=== PATIENT | male | born 1995 | race Caucasian/White ===

== ENCOUNTER 2019-04-08 14:58 | Emergency (ER) | payer BC ==
[2019-04-08 15:04] VITALS: BP 160/94
== END 2019-04-08 16:16 | disposition left against medical advice (07) ==
LOC: ED 14:58
DX: F10.10 Alcohol abuse, uncomplicated (principal); Z53.21 Procedure and treatment not carried out due to patient leaving prior to being seen by health care provider

== ENCOUNTER 2019-04-25 16:47 | Emergency (ER) | payer BC ==
--- OUTSIDE RECORDS SUMMARY | 2019-04-25 17:01 | XMS REPORT | Summary of Care ---
:1995 Author Organization [facility] Address [address] [place] [place] [address] Care Team Providers Name Role Phone Bisi Abrams Primary Care Provider Reason for Referral Evaluate and Establish Treatment Plan (Routine) Status Reason Specialty Diagnoses / Referred By Referred To Procedures Contact Contact Authorized PSYCHIATRY / Diagnoses Anxiety Jose Alberto, Psychiatry ANUJ Mathews [address] [place] [address] Reason for Visit Reason Comments Establish Care released from drug treatment facility on 04/13 and would also like to discuss possibly going on anxiety medication Encounter Details Date Type Department Care Team Description 04/17/2019 Office Visit [place] Bisi Walls, Encounter to establish care (Primary Dx); Practice [facility] SERVICES SPECIALIST Anxiety; [address] [facility] [address] Alcohol withdrawal syndrome without complication (HCC); [place], [place] [id number] [place] [address] Essential hypertension [phone] Allergies Active Allergy Reactions Severity Noted Date Comments Bee Unknown Reaction 04/06/2018 documented as of this encounter (statuses as of 04/17/2019) Medications Medication Sig Dispensed Refills Start Date End Date Status cloNIDine-Chlortha Take 0.1 mg 90 Tab 3 04/17/2019 Active lidone 0.1-15 MG by mouth Oral THREE TIMES TabIndications: DAILY. Alcohol withdrawal syndrome without complication (HCC), Essential hypertension cloNIDine-Chlortha Take 0.1 mg 0 04/17/2019 Discontinued lidone 0.1-15 MG by mouth (Reorder) Oral Tab THREE TIMES DAILY. cloNIDine-Chlortha Take 0.1 mg 90 Tab 0 04/17/2019 04/17/2019 Discontinued lidone 0.1-15 MG by mouth Oral THREE TIMES TabIndications: DAILY. Alcohol withdrawal syndrome without complication (HCC), Essential hypertension documented as of this encounter (statuses as of 04/17/2019) Active Problems No known active problemsdocumented as of this encounter (statuses as of 2018) Social History Tobacco Use Types Packs/Day Years Used Date Former Smoker Cigarettes 0 Quit: 03/27/2019 Smokeless Tobacco: Never Used Alcohol Use Drinks/Week oz/Week Comments Not Currently Detox in April 2019. Sex Assigned at Date Recorded Not on file Job Start Date Occupation Industry Not on file Not on file Not on file Travel History Travel Start Travel End No recent travel history available. documented as of this encounter Last Filed Vital Signs Vital Sign Reading Time Taken Comments Blood Pressure 126/54 04/17/2019 10:51 AM EST Pulse 64 04/17/2019 10:51 AM EST Temperature - - Respiratory Rate - - Oxygen Saturation 97% 04/17/2019 10:51 AM EST Inhaled Oxygen Concentration - - Weight 98.5 kg (217 lb 3.2 oz) 04/17/2019 10:51 AM EST Height 185.4 cm (6' 1") 04/17/2019 10:51 AM EST Body Mass Index 28.66 04/17/2019 10:51 AM EST documented in this encounter Patient Instructions Patient InstructionsBisi Abrams NP - 04/17/2019 11:00 AM DIXON have sent in a refill of the clonidine-chlorthalidone. Referral to psych - we can make this appointment when you leave. Please get blood work done today. Follow up in about 3 months. Check Blood pressures at home once in awhile - do not want to go below 100/50. documented in this encounter Progress Notes Bisi Abrams NP - 04/17/2019 11:00 AM EST PATIENT: Christoph Torres : 1995 DATE OF SERVICE: 04/17/2019 CHIEF COMPLAINT: Chief Complaint Patient presents with [facility] released from drug treatment facility on 04/13 and would also like to discuss possibly going on anxiety medication Subjective HISTORY OF PRESENT ILLNESS: Christoph Torres is a 23-y.o. male. HPI Just released for etoh detox last week, was successful - Detox in [facility]." He is concerned because his BP was high at detox - 200/?. He was taking clonidine while there whichhelped with the blood pressure. Now sober, his anxiety is much increased. He was getting valium while in detox which helped. 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 Worried he will lose his job. He is 7 days sober. Denies any other drug use. He is currently taking clonidine three times a day for his blood pressure. Valium once or twice a day. In the last year whenever he has checked his BP it is consistently in 160's to 170's. History reviewed. No pertinent past medical history. History reviewed. No pertinent family history. Current Outpatient Medications Medication Sig cloNIDine-Chlorthalidone 0.1-15 MG Oral Tab Take 0.1 mg by mouth THREE TIMES DAILY. No current facility-administered medications for this visit. Allergies Allergen Reactions Bee Unknown Reaction Social History Socioeconomic History Marital status: Single Spouse name: Not on file Number of children: Not on file Years of education: Not on file Highest education level: Not on file Occupational History Not on file Social Needs Financial resource strain: Not on file Food insecurity: Worry: Not on file Inability: Not on file Transportation needs: Medical: Not on file Non-medical: Not on file Tobacco Use Smoking status: Former Smoker Packs/day: 0.00 Types: Cigarettes Last attempt to quit: 03/27/2019 Years since quittin.0 Smokeless tobacco: Never Used Substance and Sexual Activity Alcohol use: Not Currently Comment: Detox in April 2019. Drug use: Yes Types: Marijuana Comment: for migraines. Sexual activity: Not on file Lifestyle Physical activity: Days per week: Not on file Minutes per session: Not on file Stress: Not on file Relationships Social connections: Talks on phone: Not on file Gets together: Not on file Attends lutheran service: Not on file Active member of club or organization: Not on file Attends meetings of clubs or organizations: Not on file Relationship status: Not on file Intimate partner violence: Fear of current or ex partner: Not on file Emotionally abused: Not on file Physically abused: Not on file Forced sexual activity: Not on file Other Topics Concern Not on file Social History Narrative Not on file Over the last 2 weeks, have you been feeling down, depressed, anxious, or hopeless?: 3 Over the past 2 weeks, have you felt little interest or pleasure in doing things ?: 0 Trouble falling or staying asleep, or sleeping too much?: 2 Feeling tired or having little energy?: 0 Poor appetite or overeating?: 0 Feeling bad about yourself or that you are a failure or have let yourself or your family down?: 0 Trouble concentrating on things, such as reading the newspaper or watching TV?: 2 Moving or speaking so slowly that other people notice OR being fidgety and restless?: 0 Thoughts that you would be better off or of hurting yourself in some way?: 0 PHQ-9 TOTAL SCORE: 7 How difficult have these problems made it for you to do your work, take care of things at home or get along with people?: Somewhat difficult In the past 2 years, have you felt depressed or sad most days, even if you felt ok?: Yes REVIEW OF SYSTEMS: Review of Systems Constitutional: Negative for chills, fever and malaise/fatigue. Cardiovascular: Positive for chest pain and palpitations (with anxiety attacks). Gastrointestinal: Negative for nausea and vomiting. Neurological: Positive for dizziness and headaches (since starting clonidine, chronic migraines). Negative for tingling and sensory change. Psychiatric/Behavioral: Negative for depression, substance abuse and suicidal ideas. The patient is nervous/anxious. Objective PHYSICAL EXAM: VITALS: BP 126/54 (BP Location: Left arm, Patient Position: Sitting) | Pulse 64 | Ht 6' 1" (1.854m) | Wt 217 lb 3.2 oz (98.5 kg) | SpO2 97% | BMI 28.66 kg/m Body mass index is 28.66 kg/m. Physical Exam Vitals signs and nursing note reviewed. Constitutional: General: He is not in acute distress. Appearance: He is well-developed. Cardiovascular: Rate and Rhythm: Normal rate and regular rhythm. Heart sounds: Normal heart sounds. No murmur. No friction rub. No gallop. Pulmonary: Effort: Pulmonary effort is normal. No respiratory distress. Breath sounds: Normal breath sounds. Neurological: Mental Status: He is alert and oriented to person, place, and time. GCS: GCS eye subscore is 4. GCS verbal subscore is 5. GCS motor subscore is 6. Psychiatric: Attention and Perception: He is attentive. Speech: Speech normal. Behavior: Behavior normal. Thought Content: Thought content normal. Judgment: Judgment normal. This report was requested by: Bisi Abrams | Reference #: [id number] Others' Prescriptions Patient Name: Wade Torres Date: 1995 Address: [address] [place] [address] Sex: Male Rx Written Rx Dispensed Drug Quantity Days Supply Prescriber Name 04/10/2019 04/10/2019 diazepam 5 mg tablet 10 2 Guzman, Ellie A ASSESSMENT / IMPRESSION: ICD-9-CM ICD-10-CM 1. Encounter to establish care V65.8 Z76.89 2. Anxiety 300.00 F41.9 REFER TO PSYCHIATRY 3. Alcohol withdrawal syndrome without complication (HCC) 291.81 F10.230 cloNIDine-Chlorthalidone 0.1-15 MG Oral Tab COMPREHENSIVE METABOLIC PANEL 4. Essential hypertension 401.9 I10 cloNIDine-Chlorthalidone 0.1-15 MG Oral Tab COMPREHENSIVE METABOLIC PANEL Plan 1. Anxiety He is requesting a refill of the valium that he had while in detox. Discussed that this is a not long-term medication, potential for addiction and abuse. -He declines SSRI or other anti-depressant/anti-anxiety. -Will refer to psych for continued medication management - [facility]. - REFER TO PSYCHIATRY; Future 2. Encounter to establish care 3. Alcohol withdrawal syndrome without complication (HCC) - COMPREHENSIVE METABOLIC PANEL; Future - cloNIDine-Chlorthalidone 0.1-15 MG Oral Tab; Take 0.1 mg by mouth THREE TIMES DAILY. Dispense: 90Tab; Refill: 3 4. Essential hypertension Ok today - was high per him at various appointment over the last year. - COMPREHENSIVE METABOLIC PANEL; Future -check potassium from chlorthalidone. - cloNIDine-Chlorthalidone 0.1-15 MG Oral Tab; Take 0.1 mg by mouth THREE TIMES DAILY. Dispense: 90Tab; Refill: 3 He will check his BP at home. Follow up in one month to discuss further need of blood pressure medication. Author: Bisi Abrams NP 04/17/2019 11:50 documented in this encounter Plan of Treatment Date Type Specialty Care Team Description 05/17/2019 Office Visit Family Practice Bisi Abrams NP [address] [place] [address] [phone] Name Type Priority Associated Diagnoses Date/Time COMPREHENSIVE METABOLIC Lab Routine Alcohol withdrawal 04/17/2019 12:15 PM PANEL syndrome without EST complication (HCC) Essential hypertension Name Type Priority Associated Diagnoses Order Schedule COMPREHENSIVE METABOLIC Lab Routine Alcohol withdrawal Expected: 04/17/2019 PANEL syndrome without (Approximate), complication (HCC) Expires: 04/17/2020 Essential hypertension Name Type Priority Associated Diagnoses Order Schedule REFER TO PSYCHIATRY Referral Routine Anxiety Expected: 04/17/2019, Expires: 04/17/2020 Health Maintenance Due Date Last Done Comments HIV SCREENING 2008 INFLUENZA VACCINE (#1) 2019 DEPRESSION SCREENING 04/17/2020 04/17/2019, 04/17/2019 HPV IMMUNIZATION SERIES Aged Out No longer eligible based on patient's age to complete this topic MENINGOCOCCAL VACCINE IMM Aged Out No longer eligible based on patient's age to complete this topic PNEUMOCOCCAL 0-64 YRS Aged Out No longer eligible based on patient's age to complete this topic documented as of this encounter Results Not on filedocumented in this encounter Visit Diagnoses Diagnosis Encounter to establish care - Primary Other reasons for seeking consultation Anxiety Anxiety state, unspecified Alcohol withdrawal syndrome without complication (HCC) Essential hypertension Unspecified essential hypertension documented in this encounter Insurance Payer Benefit Plan / Subscriber ID Effective Dates Phone Address Type Group [employer] xxxxxxxxxxxx 2018-Present [employer] documented as of this encounter
--- NOTE | 2019-04-25 17:12 | ED ---
Headache - HPI Summary HPI Summary: This patient is a 23 year old M presenting to ED with a chief complaint of headache since an hour ago. Patient was driving to cotton picker his fianc from work. He thinks he is having a panic attack. Patient has had migraines before, and this feels similar though. Patient has been in alcohol detox for the past two weeks and has been taking clonodine. He has not really been sober before. Patient smoked weed this morning. The patient rates the pain 8/10 in severity. Symptoms aggravated by nothing. Symptoms alleviated by nothing. Patient reports shaking, dizziness, visual defects (as if he has looked at the sun for too long) , having trouble thinking, numbness and tingling in the chest/hands/lips. Medications reviewed. Allergies noted. - History Of Current Complaint Chief Complaint: EDAltMentalStatus Stated Complaint: AMS PER PT Time Seen by Provider: 04/25/19 17:05 Hx Obtained From: Patient Onset/Duration: Sudden Onset, Started hours ago - 1 hour ago, Still Present Initially Headache Was: Initial Pain Scale(0-10)= - 8 Currently Pain Is: Current Pain Scale(0-10)= - 8 Timing: Constant Aggravating Factor: Nothing Allevating Factors: Nothing Associated Signs And Symptoms: Visual Changes - Allergies/Home Medications Allergies/Adverse Reactions: Allergies Allergy/AdvReac Type Severity Reaction Status Date / Time Bees Allergy Swelling Uncoded 04/25/19 16:52 Home Medications: Home Medications Famotidine TAB 40 MG(NF) [Pepcid TAB 40 MG(NF)] 40 mg PO BID 04/25/19 [History Confirmed 04/25/19] busPIRone TAB* [Buspar TAB*] 5 mg PO TID PRN 04/25/19 [History Confirmed ] cloNIDine TAB* [Catapres 0.1 MG TAB*] 0.1 mg PO TID 04/25/19 [History Confirmed 04/25/19] PMH/Surg Hx/FS Hx/Imm Hx Respiratory History: Reports: Hx Asthma Sensory History: Denies: Hx Legally Blind, Hx Deafness Opthamlomology History: Denies: Hx Legally Blind EENT History: Denies: Hx Deafness Neurological History: Reports: Hx Migraine - Surgical History Surgery Procedure, Year, and Place: Denies Infectious Disease History: No Infectious Disease History: Denies: History Other Infectious Disease, Traveled Outside the [place] in Last 30 Days - Family History Known Family History: Positive: Diabetes Negative: Cardiac Disease, Hypertension, Seizure Disorder - Social History Alcohol Use: None Alcohol Amount: In detox since 2 weeks ago Hx Substance Use: No Substance Use Type: Reports: None Hx Tobacco Use: Yes Smoking Status (MU): Former Smoker Length of Time of Smoking/Using Tobacco: 6 years Review of Systems Eyes: Other - Change in vision as if he has looked at the sun for too long Neurological: Other - Numbness/tingling in chest/hands/lips, shaking, dizziness , difficulty thinking Positive: Headache All Other Systems Reviewed And Are Negative: Yes Physical Exam - Summary Physical Exam Summary: Constitutional: Well-developed, Well-nourished, Alert. (-) Distressed Skin: Warm, Dry HENT: Normocephalic; Atraumatic Eyes: Conjunctiva normal Neck: Musculoskeletal ROM normal neck. (-) JVD, (-) Stridor, (-) Tracheal deviation Cardio: Rhythm regular, rate normal, Heart sounds normal; Intact distal pulses. Radial pulses are 2+ and symmetric. (-) Murmur Pulmonary/Chest wall: Effort normal. (-) Respiratory distress, (-) Wheezes, (-) Rales Abd: Soft. (-) Tenderness, (-) Distension, (-) Guarding, (-) Rebound Musculoskeletal: (-) Edema Lymph: (-) Cervical adenopathy Neuro: Alert, Oriented x3, Strength normal, Cranial nerves II-XII are grossly intact. (-) Dysmetria, (-) Nystagmus, (-) Ataxia by finger to nose testing, (-) Sensory deficit. NIH: 0 Psych: Anxious Triage Information Reviewed: Yes Vital Signs On Initial Exam: Initial Vitals Temp Pulse Resp BP Pulse Ox 98 F 62 18 144/81 100 04/25/19 16:49 04/25/19 16:49 04/25/19 16:49 04/25/19 16:49 04/25/19 16:49 Vital Signs Reviewed: Yes Procedures - Sedation Patient Received Moderate/Deep Sedation with Procedure: No Diagnostics - Vital Signs Vital Signs Temp Pulse Resp BP Pulse Ox 04/25/19 16:49 98 F 62 18 144/81 100 - Laboratory Lab Statement: Any lab studies that have been ordered have been reviewed, and results considered in the medical decision making process. - EKG 1724 Cardiac Rate: Bradycardia - 58 BPM EKG Rhythm: Sinus Bradycardia ST Segment: Normal Ectopy: None Summary of EKG Findings: Sinus bradycardia at 58 BPM, otherwise normal, no STEMI. Dr. Verma has reviewed and interpreted this EKG. National Institutes Of Health - NIH Scale Level of Consciousness: Alert/Keenly Responsive Ask Patient the Month and His/Her Age: Both Correct Ask Pt to Open/Close Eyes and Rolls Baker/Release Non-Paretic Hand: Both Correctly Best Gaze (Only Horizontal Eye Movement): Normal Visual Field Testing: No Visual Loss Facial Paresis-Pt to Smile & Close Eyes or Grimace Symmetry: Normal/Symmetrical Motor Function - Right Arm: No Drift-Holds 10 Seconds Motor Function - Left Arm: No Drift-Holds 10 Seconds Motor Function - Right Leg: No Drift-Holds 10 Seconds Motor Function - Left Leg: No Drift-Holds 10 Seconds Limb Ataxia-Must be out of Proportion to Weakness Present: Absent Sensory (Use Pinprick to Test Arms/Legs/Trunk/Face): Normal Best Language (Describe Picture, Name Items): No Aphasia Dysarthria (Read Several Words): Normal Extinction and Inattention: No Abnormality Total Score: 0 Re-Evaluation - Re-Evaluation First Eval Re-Evaluation Time: 17:51 Change: Improved Comment: Patient reports feeling better and would like to go home. He states he has just been getting a lot of panic attacks after he stopped drinking alcohol. He has been doing yoga and other meditation techniques. Discussed results with patient. Patient will be discharged home with dx of . Patient understands and agrees with this plan. Headache Course/Dx - Course Course Of Treatment: Patient is here with a likely panic attack. Patient is having frequent panic attacks following his sobriety 2 weeks ago. Patient had tingling in his hands and lips and was tachypnea upon arrival. Patient had a normal neurologic exam with a stroke scale of 0. Patient had normal glucose and an unremarkable EKG performed. Patient was given hydroxyzine. Patient's symptoms resolved by the time he was discharged. - Diagnoses Provider Diagnoses: Anxiety disorder, Panic attack Discharge ED - Sign-Out/Discharge Documenting (check all that apply): Patient Departure - Discharge - Discharge Plan Condition: Stable Disposition: HOME Patient Education Materials: Anxiety (ED), Panic Attack (ED) Referrals: [facility] [Outside] Additional Instructions: Continue with your Vistaril at home and follow-up your counselor and primary care physician. Continue doing the meditation exercises. Return to the ER for any worsening or changing symptoms. - Billing Disposition and Condition Condition: STABLE Disposition: Home - Attestation Statements Document Initiated by Rosaibe: Yes Documenting Scribe: Jim Mckay Provider For Whom Rocio is Documenting (Include Credential): Isaias Verma MD Scribe Attestation: Jim Gil, scribed for Isaias Verma MD on 04/25/19 at 1807. Scribe Documentation Reviewed: Yes Provider Attestation: The documentation as recorded by the Jim marroquin accurately reflects the service I personally performed and the decisions made by me, Isaias Verma MD Status of Scribe Document: Viewed
[2019-04-25] MEDS ORDERED: hydrOXYzine HCL TAB* 25 MG PO ONE (17:16)
[2019-04-25 17:58] VITALS: BP 144/85
== END 2019-04-25 17:59 | disposition home or self-care (01) ==
LOC: ED 16:47
DX: F41.0 Panic disorder [episodic paroxysmal anxiety] (principal); R00.1 Bradycardia, unspecified; Z91.030 Bee allergy status; Z87.891 Personal history of nicotine dependence
CPT/HCPCS: 93005; 99282; A9270-GY